=== PATIENT | male | born 1970 | race Caucasian/White ===

== ENCOUNTER 2017-05-19 08:41 | Emergency (ER) | payer MEDICAID ==
[2017-05-19 08:45] VITALS: BMI 34.8
[2017-05-19 09:00] VITALS: TEMP 98.5; O2SAT 98
--- NOTE | 2017-05-19 09:57 | C.PDOC ---
History Of Present Illness 46 y/o male with h/o hemorrhoids presents to ED with complaints of rectal pain when having bowel movement. Pt notes that he feels something there. He had some rectal bleeding a week ago which has improved. He has seen his PMD who prescribed antibiotics and topical creams but pain persists. Notes his stools area hard and he strains with BM. Last BM yesterday. Patient denies fever, chills, abdominal pain, n/v or any other complaints at this time. Pt has specialist appt on . Time Seen by Provider: 05/19/17 09:18 Chief Complaint (Nursing): GI Problem History Per: Patient History/Exam Limitations: no limitations Onset/Duration Of Symptoms: Days Current Symptoms Are (Timing): Still Present Past Medical History Reviewed: Historical Data, Nursing Documentation, Vital Signs Vital Signs: Last Vital Signs Temp 98.5 F 05/19/17 08:50 Pulse 71 05/19/17 11:08 Resp 16 05/19/17 11:08 BP 139/73 05/19/17 11:08 Pulse Ox 98 05/19/17 11:08 - Medical History PMH: Diabetes, Hypercholesterolemia Surgical History: No Surg Hx Family History: States: No Known Family Hx - Social History Hx Tobacco Use: No Hx Alcohol Use: No Hx Substance Use: No - Immunization History Hx Tetanus Toxoid Vaccination: No Hx Influenza Vaccination: Yes (2017) Hx Pneumococcal Vaccination: No Review Of Systems Constitutional: Negative for: Fever, Chills Gastrointestinal: Positive for: Constipation, Hematochezia. Negative for: Vomiting, Abdominal Pain Musculoskeletal: Negative for: Back Pain Skin: Negative for: Rash Physical Exam - Physical Exam Appears: Non-toxic, No Acute Distress Skin: Warm, Dry, No Rash Head: Atraumatic, Normacephalic Eye(s): bilateral: Normal Inspection, EOMI Nose: Normal Oral Mucosa: Moist Neck: Normal ROM, Supple Chest: Symmetrical Cardiovascular: Rhythm Regular Respiratory: Normal Breath Sounds, No Accessory Muscle Use, No Rales, No Rhonchi , No Wheezing Gastrointestinal/Abdominal: Soft, No Tenderness, Distention, No Guarding, No Rebound Rectal: Rectal Tone, No Maroon Stool, No Melena, No Blood Streaked Stool, Hemorrhoids (non thrombosed pink hemorrhoid), Tenderness Extremity: Normal ROM, Capillary Refill (<2 seconds) Neurological/Psych: Oriented x3, Normal Speech, Normal Cognition ED Course And Treatment O2 Sat by Pulse Oximetry: 98 (RA) Pulse Ox Interpretation: Normal - Other Rad Obstructive series abdomen X-Ray: Viewed By Me, Read By Radiologist Interpretation: PROCEDURE: Radiographs of the chest and abdomen (obstructive series) 0 0. HISTORY: pain. COMPARISON: No prior. TECHNIQUE: AP radiograph of the chest, with upright and supine radiographs of the abdomen. FINDINGS: CHEST: Lungs: Clear. Cardiovascular: Normal size heart. No pulmonary vascular congestion. Pleura: No pleural fluid. No pneumothorax. Other findings: None. ABDOMEN AND PELVIS: Bowel: Mild retained feces. No evidence of bowel obstruction. Free air: None. Bones: Unremarkable. Other findings: None. IMPRESSION: No evidence of bowel obstruction. Progress Note: Xray Obstructive series ordered, Blood culture sent to lab. Discussed diet changes, prevention, and specialist f/u. Patient has no active rectal bleeding, is not orthostatic, and vital signs are stable. Patient was instructed to follow up with their physician/clinic in 1-2 days Disposition - Disposition Referrals: Sixto Leon [Staff Provider] - Disposition: HOME/ ROUTINE Disposition Time: 10:39 Condition: STABLE Additional Instructions: Warm sitz baths. Follow up with primary medical doctor in 1-3 days without fail for further evaluation. Take medications as prescribed. Return to the emergency department at any time if symptoms persist or worsen. 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 - Scribe Statement The provider has reviewed the documentation as recorded by the Concepción Espitia All medical record entries made by the Concepción were at my direction and personally dictated by me. I have reviewed the chart and agree that the record accurately reflects my personal performance of the history, physical exam, medical decision making, and the department course for this patient. I have also personally directed, reviewed, and agree with the discharge instructions and disposition.
[2017-05-19] MEDS ORDERED: Magnesium Citrate Oral SOL (300 ml) PO ONE (10:33)
[2017-05-19] MEDS ORDERED: Lidocaine 2% Jelly (Uro-Jet) TOP ONE (10:33)
--- NOTE | 2017-05-19 10:33 | RAD ---
PROCEDURE: Radiographs of the chest and abdomen (obstructive series) 0 0 HISTORY: pain COMPARISON: No prior. TECHNIQUE: AP radiograph of the chest, with upright and supine radiographs of the abdomen. FINDINGS: CHEST: Lungs: Clear. Cardiovascular: Normal size heart. No pulmonary vascular congestion. Pleura: No pleural fluid. No pneumothorax. Other findings: None. ABDOMEN AND PELVIS: Bowel: Mild retained feces. No evidence of bowel obstruction. Free air: None. Bones: Unremarkable. Other findings: None. IMPRESSION: No evidence of bowel obstruction.
[2017-05-19] MEDS ORDERED: Naproxen 550 mg Tab PO STA (10:34)
[2017-05-19] MEDS ORDERED: Lidocaine 2% Jelly (Uro-Jet) ONE (11:01)
[2017-05-19] MEDS ORDERED: Naproxen 550 mg Tab PO ONE (11:01)
[2017-05-19] MEDS ORDERED: Magnesium Citrate Oral SOL (300 ml) ONE (11:02)
[2017-05-19 11:08] VITALS: BP 139/73; PULSE 71; RESP 16
== END 2017-05-19 11:09 | disposition home or self-care (01) ==
LOC: C.ER 08:41
DX: K64.9 Unspecified hemorrhoids (principal); E11.9 Type 2 diabetes mellitus without complications; E78.00 Pure hypercholesterolemia, unspecified
CPT/HCPCS: 74022; 99284; G0328